=== PATIENT | female | born 1940 | race Caucasian/White ===

== ENCOUNTER 2016-11-18 11:20 | Outpatient (CLI) | payer MEDICARE | END 2016-11-18 11:21 | disposition home or self-care (01) | LOC: LABLEX 11:20 | PROVIDERS: ATTEND Family Medicine | DX: N39.0 Urinary tract infection, site not specified (principal) | CPT/HCPCS: 87086 ==

== ENCOUNTER 2022-04-21 16:54 | Outpatient (CLI) | payer MEDICARE | END 2022-04-21 16:55 | disposition home or self-care (01) | LOC: BURRAD 16:54 | PROVIDERS: ATTEND Nurse Practitioner | DX: J20.9 Acute bronchitis, unspecified (principal); R91.8 Other nonspecific abnormal finding of lung field | CPT/HCPCS: 71046 ==

== ENCOUNTER 2024-10-07 16:04 | Emergency (ER) | payer MEDICARE | END 2024-10-07 17:54 | disposition short-term general hospital (02) | LOC: BURERS 16:04 | DX: K22.2 Esophageal obstruction (principal) | CPT/HCPCS: 99284 ==